=== PATIENT | female | born 1990 | race Caucasian/White ===

== ENCOUNTER 2017-12-01 18:19 | Emergency (ER) | payer MEDICAID, OTHER ==
[~2017-12-01] VITALS: Ht 162.6 cm; Wt 68.0 kg
[2017-12-01 18:22] VITALS: BP 161/91
--- NOTE | 2017-12-01 18:22 | NUR ---
PT BIBA BLS TO BED 8
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
--- NOTE | 2017-12-01 19:00 | NUR ---
AWAITING PHYSICIAN DISPOSITINO. DR. GIBSON NOTIFIED OF PT'S PAIN AND CONDITION. PAIN 02/11. VSS. CONTINUE TO MONIOTR.
--- NOTE | 2017-12-01 20:00 | NUR ---
AWAITING PHYSICIAN DISPOSITINO. DR. GIBSON NOTIFIED OF PT'S PAIN AND CONDITION. PAIN 02/11. VSS. CONTINUE TO MONIOTR.
--- NOTE | 2017-12-01 21:00 | NUR ---
AWAITING PHYSICIAN DISPOSITINO. DR. GIBSON NOTIFIED OF PT'S PAIN AND CONDITION. PAIN 02/11. VSS. CONTINUE TO MONIOTR.
[2017-12-01] MEDS ORDERED: IBUPROFEN 800 MG TAB PO ONE (21:25)
--- NOTE | 2017-12-01 21:25 | NUR ---
ORDERED IBUPROFEN FOR PAIN. PT STATES 8/10 PAIN WITH DIFFICULTY BREATHING D/T PAIN. DR. GIBSON NOTIFIED. AWAITING MD DISPOSITION.
--- NOTE | 2017-12-01 22:00 | NUR ---
AWAITING PHYSICIAN DISPOSITINO. DR. GIBSON NOTIFIED OF PT'S PAIN AND CONDITION. PAIN 03/14. VSS. CONTINUE TO MONIOTR.
--- NOTE | 2017-12-01 22:41 | NUR ---
PT CONTINUES TO HAVE PAIN 03/14. DR GIBSON INFORMED. AWAITING DISPOSITION FROM . VSS. CONTINUE TO MONITOR.
--- NOTE | 2017-12-01 23:00 | NUR ---
AWAITING PHYSICIAN DISPOSITINO. DR. GIBSON NOTIFIED OF PT'S PAIN AND CONDITION. PAIN 02/11. VSS. CONTINUE TO MONIOTR.
--- NOTE | 2017-12-02 | NUR ---
AWAITING PHYSICIAN DISPOSITINO. DR. GIBSON NOTIFIED OF PT'S PAIN AND CONDITION. PAIN 02/11. VSS. CONTINUE TO MONIOTR.
[2017-12-02 00:25] VITALS: BP 158/91
--- NOTE | 2017-12-02 00:30 | NUR ---
PT LEFT WITHOUT DISCHARGE PAPERWORK. DISCHARGE PAPERWORK RECIEVED FROM DR. GIBSON AT 0025. PAPERWORK AVAILABLE FOR PT IF PT RETURNS.
== END 2017-12-02 00:30 | disposition home or self-care (01) ==
LOC: MED 18:19
DX: S80.11XA Contusion of right lower leg, initial encounter (principal); R07.89 Other chest pain; V49.59XA Passenger injured in collision with other motor vehicles in traffic accident, initial encounter; Y93.89 Activity, other specified; Y99.8 Other external cause status; Y92.410 Unspecified street and highway as the place of occurrence of the external cause
CPT/HCPCS: 71045; 73560; 81025; 99284